=== PATIENT | female | born 1945 | race Caucasian/White ===

== ENCOUNTER 2018-01-25 21:11 | Inpatient (IN) | payer OTHER ==
[2018-01-25 21:11] VITALS: BMI 28.3
--- NOTE | 2018-01-25 21:41 | C.PDOC ---
History Of Present Illness 72 year old female presents to the ED for evaluation. Patient reports she tripped and fell at home, patient reports she remembers the event. Patient is currently c/o left ankle pain mostly. Patient denies LOC, headache, head injury , weakness, numbness. Time Seen by Provider: 01/25/18 21:41 Chief Complaint (Nursing): Trauma History Per: Patient History/Exam Limitations: no limitations Onset/Duration Of Symptoms: Hrs Current Symptoms Are (Timing): Still Present Severity: Moderate Pain Scale Rating Of: 4 Recent travel outside of the [place]: No Additional History Per: Patient, Family Past Medical History Reviewed: Historical Data, Nursing Documentation, Vital Signs Vital Signs: Last Vital Signs Temp 99.1 F 01/25/18 21:21 Pulse 111 H 01/25/18 21:21 Resp 18 01/25/18 21:21 BP 133/82 01/25/18 21:21 Pulse Ox 99 01/26/18 00:02 - Medical History PMH: Depression, HTN Denies: Chronic Kidney Disease Surgical [facility] CLOS[facility] ENDOSCOPIC BIOPSY OF LARGE INTESTINE (02/22/15) ESOPHAGOGASTRODUODENOSCOPY [EGD] W/CLOSED BIOPSY (03/01/15) Family History: States: No Known Family Hx - Social History Hx Tobacco Use: No Hx Alcohol Use: No Hx Substance Use: No - Immunization History Hx Tetanus Toxoid Vaccination: No Hx Influenza Vaccination: No Hx Pneumococcal Vaccination: No Review Of Systems Constitutional: Negative for: Fever, Chills Eyes: Negative for: Vision Change ENT: Negative for: Throat Pain Cardiovascular: Negative for: Chest Pain Respiratory: Negative for: Shortness of Breath Gastrointestinal: Negative for: Nausea, Vomiting Genitourinary: Negative for: Dysuria Musculoskeletal: Positive for: Arm Pain, Foot Pain. Negative for: Back Pain Skin: Positive for: Other (ecchymosis) Neurological: Negative for: Weakness, Numbness, Headache, Dizziness Psych: Negative for: Anxiety Physical Exam - Physical Exam Appears: Non-toxic Skin: Warm, Dry Head: Normacephalic Eye(s): bilateral: Normal Inspection, PERRL, EOMI Ear(s): Bilateral: Normal Nose: No Septal Hematoma, Other (ecchymosis on the bridge of the nose) Oral Mucosa: Moist Neck: No Midline Cervical Tenderness, Supple Chest: Symmetrical, Ecchymosis (4x6 cm on left breast) Cardiovascular: Rhythm Regular Respiratory: No Rales, No Rhonchi, No Wheezing Gastrointestinal/Abdominal: Soft, No Tenderness, No Guarding, No Rebound Back: Normal Inspection Extremity: Normal ROM, Tenderness (left ankle), Capillary Refill (< 2 seconds), Swelling (left ankle ecchymotic, medial aspect) Pulses: Left Dorsalis Pedis: Normal, Right Dorsalis Pedis: Normal Neurological/Psych: Oriented x3, Normal Speech Gait: Other (unable to bear weight on left ankle due to pain) ED Course And Treatment ECG: Interpreted By Me, Viewed By Me ECG Rhythm: Sinus Rhythm (100), Nonspecific Changes O2 Sat by Pulse Oximetry: 99 (ON RA) Pulse Ox Interpretation: Normal Progress Note: Plan: - CT head. - CT orbits/facial. - CT lower extremity. - CT upper extremity. - EKG. - Motrin 800 mg PO. Pt does not want to be hospitalized.Understands the risks as I've explained to her and family (at bedside and HIPAA compliant) including loss of limb and . Pt states that she is flying out to [facility] to bury her brother. Is aware of increased risks of PE and , but insists on leaving. Copies of the sudies given to the pt. Family is in agreement Disposition Discussed With .: Hipolito Reza Comment: accepted the pt on his service and took over the care at 2AM Doctor Will See Patient In The: Hospital Counseled Patient/Family Regarding: Studies Performed, Diagnosis, Need For Followup, Rx Given - Disposition Referrals: Reyes Abreu III, MD [Staff Provider] - Disposition: HOSPITALIZED Disposition Time: 21:41 Condition: FAIR Additional Instructions: Please follow up with out orthopedic surgean or return to the ED Instructions: Tibia Fracture, Ankle Fracture (DC), Contusion (DC), Minor Head Injury (DC), Radius Fracture (DC) Forms: [employer] (Monegasque) Print Language: TURKISH - Clinical Impression Clinical Impression: Fall, Minor head injury without loss of consciousness, Distal radius fracture, left, Fracture of distal end of tibia - Scribe Statement The provider has reviewed the documentation as recorded by the Scribe Rolando Nicole All medical record entries made by the Scribe were at my direction and personally dictated by me. I have reviewed the chart and agree that the record accurately reflects my personal performance of the history, physical exam, medical decision making, and the department course for this patient. I have also personally directed, reviewed, and agree with the discharge instructions and disposition. Decision To Admit - Pt Status Changed To: Hospital Disposition Of: Inpatient - Admit Certification Admit to Inpatient:: After my assessment, the patient will require hospitalization for at least two midnights. This is because of the severity of symptoms shown, intensity of services needed, and/or the medical risk in this patient being treated as an outpatient. - InPatient: Physician Admission Certification: I certify that this patient requires 2 or more midnights of care for the following reason:: After my assessment, the patient will require hospitalization for at least two midnights. This is because of the severity of symptoms shown, intensity of services needed, and/or the medical risk in this patient being treated as an outpatient. - . Bed Request Type: Regular Admitting Physician: Hipolito Reza Patient Diagnosis: Fall, Minor head injury without loss of consciousness, Distal radius fracture, left, Fracture of distal end of tibia
--- NOTE | 2018-01-25 23:21 | CT ---
EXAM: CT Maxillofacial Without Intravenous Contrast EXAM DATE/TIME: 01/25/2018 9:53 PM CLINICAL HISTORY: 72 years old, female; Pain; Face pain; Additional info: Fall TECHNIQUE: Axial computed tomography images of the face without intravenous contrast. All CT scans at this facility use one or more dose reduction techniques, viz.: automated exposure control; ma/kV adjustment per patient size (including targeted exams where dose is matched to indication; i.e. head); or iterative reconstruction technique. Coronal and sagittal reformatted images were created and reviewed. COMPARISON: No relevant prior studies available. FINDINGS: Bones/joints: There are no acute facial bone fractures. There is an old right lamina papyracea fracture. There degenerative changes in the upper cervical spine. Soft tissues: There are no facial masses. Vasculature: Vascular structures are unremarkable. Orbits: Globes are intact. There are no acute retrobulbar abnormalities. Salivary glands: Parotid and submandibular glands are unremarkable. Sinuses: There is a small air-fluid level in the left sphenoid sinus. There is an air-fluid level in the right maxillary sinus. Dental: Patient is almost edentulous. There are dental carries. Brain: No focal abnormalities are seen in visualized portion of the brain. IMPRESSION: Sinusitis; no acute facial bone fracture Additional nonemergent findings as described above.
--- NOTE | 2018-01-25 23:21 | CT ---
EXAM: CT Head Without Intravenous Contrast EXAM DATE/TIME: 01/25/2018 9:53 PM CLINICAL HISTORY: 72 years old, female; Pain; Headache; Additional info: Fall TECHNIQUE: Axial computed tomography images of the head/brain without intravenous contrast. All CT scans at this facility use one or more dose reduction techniques, viz.: automated exposure control; ma/kV adjustment per patient size (including targeted exams where dose is matched to indication; i.e. head); or iterative reconstruction technique. COMPARISON: There are no prior studies for comparison. FINDINGS: Brain: There is prominence of sulci gyri and ventricles. There is no midline shift. There is mild decreased attenuation in periventricular white matter. There are no focal masses. There are no focal hemorrhages. Dixon-white differentiation is visualized. Ventricles: See above. Bones: Cranial vault is intact. Orbits: There are no acute orbital abnormalities. There is an old right lamina papyracea fracture. Soft tissues: unremarkable Sinuses: There is an air-fluid level in the right maxillary sinus. There is a small air-fluid level in the left sphenoid sinus Ears and mastoids: Middle ears and mastoids are unremarkable. IMPRESSION: No acute intracranial abnormality; sinus disease
--- NOTE | 2018-01-25 23:28 | CT ---
EXAM: CT Left Upper Extremity Without Intravenous Contrast EXAM DATE/TIME: 01/25/2018 9:56 PM CLINICAL HISTORY: 72 years old, female; Pain and signs and symptoms; Swelling; Hand and wrist; Left; Upper arm and hand; Additional info: Wrist, hand left S/P fall TECHNIQUE: Axial computed tomography images of the left upper extremity without intravenous contrast. All CT scans at this facility use one or more dose reduction techniques, viz.: automated exposure control; ma/kV adjustment per patient size (including targeted exams where dose is matched to indication; i.e. head); or iterative reconstruction technique. Coronal and sagittal reformatted images were created and reviewed. COMPARISON: There are no prior studies for comparison. FINDINGS: Bones/joints: There is diffuse soft tissue swelling over the dorsum of the hand. There is palmar soft tissue swelling. There is less extensive swelling at the wrist. Distal ulna is intact. There is a linear nondisplaced distal radial fracture extending to the articular surface. There are no dislocations at the wrist. Radial carpal joint spaces are maintained. There are no carpal fractures. There are no metacarpal fractures. Phalanges are intact. There degenerative changes greatest in the distal interphalangeal joints. There is joint space narrowing and osteophyte formation. There is less extensive narrowing of the proximal interphalangeal joints. I Soft tissues: See above IMPRESSION: Soft tissue swelling at the wrist and hand; nondisplaced distal radial fracture with intra-articular extension; osteoarthritis
--- NOTE | 2018-01-25 23:36 | CT ---
EXAM: CT Left Lower Extremity Without Intravenous Contrast, Ankle EXAM DATE/TIME: 01/25/2018 9:53 PM CLINICAL HISTORY: 72 years old, female; Pain; Ankle; Left; Additional info: Fall TECHNIQUE: Axial computed tomography images of the left ankle without intravenous contrast. All CT scans at this facility use one or more dose reduction techniques, viz.: automated exposure control; ma/kV adjustment per patient size (including targeted exams where dose is matched to indication; i.e. head); or iterative reconstruction technique. Coronal and sagittal reformatted images were created and reviewed. COMPARISON: There are no prior studies for comparison. FINDINGS: Bones/joints: There is diffuse superficial edema in the lower calf. There is more extensive soft tissue swelling at the ankle. There are distal tibial fractures. There is an avulsion fracture of the medial malleolus with a minimally displaced fracture fragment. There are small degenerative ossicles inferior to the medial malleolus.There is a fracture the posterior malleolus. There may be a linear minimally displaced fracture through the mid tibia extending to the articular surface, image 42 of series 602. Visualized portion of the tibia is intact. Talus and calcaneus are intact. There are calcaneal spurs. No hindfoot or mid foot fractures are identified. There are degenerative changes. The Soft tissues: unremarkable IMPRESSION: Distal tibial fractures with soft tissue swelling
[2018-01-26 03:15] LABS: BASO % 0.3 % (0.0-2.0); EOS # 0.1 K/uL (0.0-0.7); EOS % 2.1 % (0.0-4.0); HEMOGLOBIN 10.8 g/dL (11.0-16.0); LYMPH % 14.5 % (20.0-40.0); MEAN CELL VOLUME 82.6 fL (81.0-99.0); MEAN CORPUSCULAR HEMOGLOBIN 27.7 pg (27.0-31.0); MEAN CORPUSCULAR HGB CONC 33.6 g/dL (33.0-37.0); MEAN PLATELET VOLUME 8.1 fL (7.2-11.7); MONO # 0.5 K/uL (0.0-0.8); MONO % 7.1 % (0.0-10.0); NEUT # 5.4 K/uL (1.8-7.0); RBC 3.88 Mil/uL (3.80-5.20); RED CELL DISTRIBUTION WIDTH 16.2 % (11.5-14.5); WHITE BLOOD COUNT 7.1 K/uL (4.8-10.8)
[2018-01-26 03:23] LABS: SQUAMOUS EPITHIAL 8 /hpf (0-5); URINE BILIRUBIN NEGATIVE (NEGATIVE); URINE BLOOD NEGATIVE (NEGATIVE); URINE CLARITY Clear (Clear); URINE COLOR Yellow (YELLOW); URINE GLUCOSE (UA) 3+ mg/dL (Normal); URINE LEUKOCYTE ESTERASE 3+ Leu/uL (Negative); URINE PROTEIN NEGATIVE (NEGATIVE); URINE UROBILINOGEN NORMAL mg/dL (0.2-1.0)
[2018-01-26 03:28] LABS: INR 1.1; PROTHROMBIN TIME 11.8 SECONDS (9.7-12.2)
[2018-01-26 03:30] LABS: ALB/GLOB RATIO 1.1 (1.0-2.1); ALBUMIN 3.7 g/dL (3.5-5.0); ALT/SGPT 17 U/L (9-52); AST/SGOT 19 U/L (14-36); BLOOD UREA NITROGEN 18 mg/dL (7-17); CALCIUM 8.4 mg/dl (8.6-10.4); GFR AFRICAN-AMERICAN > 60; GFR NON-AFRICAN AMERICAN > 60
[2018-01-26] MEDS ORDERED: Oxycodone/Acetaminophen 5/325 mg Tab PO PRN (03:53)
[2018-01-26 08:02] VITALS: RESP 20
[2018-01-26] MEDS: GlipiZIDE 10 mg SR Tab PO SCH ×2 (09:45→17:44)
[2018-01-26] MEDS ORDERED: Home Med 1 UNIT (Ranitidine Hcl [Ranitidine Hcl] 150 MG) PO SCH (10:00)
[2018-01-26] MEDS ORDERED: GlipiZIDE 2.5 mg SR Tab PO SCH (10:00)
[2018-01-26] MEDS ORDERED: AZELASTINE HCL OU SCH ×2 (10:00)
[2018-01-26] MEDS ORDERED: LISINOPRIL 20 MG PO SCH (10:00)
[2018-01-26] MEDS: Tobramycin/Dexamethasone (Tobradex) Opth Sol (2.5 ml) OU SCH ×2 (11:00→17:44)
[2018-01-26] MEDS: (Novolin R) Insulin Human Regular 100 units/ml vial SC SCH ×3 (12:23→21:43)
--- NOTE | 2018-01-26 12:57 | RAD ---
PROCEDURE: Left Wrist Radiographs. HISTORY: s/p fall COMPARISON: None. FINDINGS: BONES: Normal. No fracture. Bony detail obscured by overlying fiberglass splint. JOINTS: Normal. No dislocation. SOFT TISSUES: Normal. OTHER FINDINGS: None. IMPRESSION: Normal left wrist radiographs.
--- NOTE | 2018-01-26 12:58 | RAD ---
PROCEDURE: Left Ankle Radiographs. HISTORY: s/p fall COMPARISON: None FINDINGS: BONES: Bony detail obscured by overlying fiberglass splint. No evidence fracture. Small plantar calcaneal spur incidentally noted. JOINTS: Normal. No osteoarthritis. Ankle mortise maintained. Talar dome intact SOFT TISSUES: Normal. OTHER FINDINGS: None. IMPRESSION: No acute fracture. Plantar calcaneal spur.
[2018-01-26] MEDS: Oxycodone/Acetaminophen 5/325 mg Tab PO PRN ×2 (15:31→20:37)
--- NOTE | 2018-01-26 15:35 | CP.PCM.HP ---
History of Present Illness - History of Present Illness History of Present Illness: COMPREHENSIVE HISTORY & PHYSICAL EXAM Patient is admitted after a fall with a fracture of the left lower tibia. HPI Patient had a history of fall. There was no syncope or presyncopal goal episodes, chest pain or TIA. Patient then developed swelling of the left ankle presented to [facility] emergency room. X-rays showed an avulsion off the distal tibia and medial malleolus and a possible spiral fracture in the lower part of the tibia. Patient is admitted for further treatment. PAST HIST. There is a history of coronary artery disease with stent full details not available PERSONAL HIST: Smoking. N Alcohol. N Allergy N Travel_- . FAMILY HIST : ROS : Constitutional: Negative for weight change, chills, night sweats, fatigue and usage of assist device. Eyes: Negative for redness, swelling, itching, discharge, vision changes, blurry vision, double vision, glaucoma, cataracts, Ears: Negative for hearing loss, ringing, , tinnitus, vertigo Nose: Negative for rhinorrhea, stuffiness, sniffing, itching, postnasal drip, discoloration, nasal congestion and epistaxis. Throat: Negative for throat clearing, sore throat, hoarseness, difficulty swallowing and difficulty speaking. Respiratory: Negative for cough, , sputum production, chest tightness, wheezing, pleuritic chest pain ,daytime somnolence, chronic cough, hemoptysis, snoring at night, Cardiovascular: Negative for chest pain, palpitations, orthopnea, PND, Edema of legs, leg cramps, angina, claudication, , irregular heartbeat, Neurology: Negative for irritability, muscle weakness, numbness and tingling, seizures, tremors, migraines, slurred speech, syncope, memory loss, mood changes , recurrent headaches Gastrointestinal: Negative for difficulty swallowing, diarrhea, constipation, black stools, rectal bleeding, nausea, flatulence, reflux, poor appetite, changes in bowel habits, abdominal pain Genitourinary: Negative for frequent urination, hematuria, discharge, incontinence, urinary retention, frequent UTI, Psychiatric: Negative for depression, anxiety/panic, suicidal tendencies, Musculoskeletal: Positive for pain and swelling of the left ankle rest of the joints are normal Skin: Negative for rash, ulcers, itching, dry skin and pigmented lesions. P/E: Constitutional: Appears stated age and in no apparent distress. Head: Normocephalic. Ears: External ear canals patent without inflammation. Tympanic membranes intact with normal light reflex and landmark. Eyes: Pupils are central, bilaterally equal, symmetrical and reacts to light with normal movements and no icterus or pallor. Nose: External nares are patent. Mucosa is pink Mouth-Throat: Good general appearance and condition. No post-pharyngeal/oropharyngeal erythema and tonsillar hypertrophy. Good dental hygiene. Neck-Lymphatic: Neck is supple with normal ROM, no thyromegaly, lymph nodes or masses. JVD is normal with no carotid bruit. Lungs: Clear to percussion and auscultation with bilateral normal air entry. Cardiovascular: S1 and S2 are normal with no murmurs, gallops and rub. GI Exam: No hepatomegaly. Abdomen is soft and non-tender. No Organomegaly , masses or hernias are evident and bowel sounds are normal and active. Neurology: Higher function and all cranial nerves intact, with no gross motor or sensory deficit. Superficial and deep reflexes are normal with downwards planters. No cerebellar deficit with normal gait. Musculoskeletal: Left ankle on the medial side is swollen with decreased range of motion and painful the vascular bundles are normal the power and sensory are normal Extremities: Homans sign absent. Intact pulses with no pitting edema, calf tenderness or skin color changes. Skin: No rash, eruptions or abnormal skin pigmentation LAB/RADIOLOGY: ASSESMENT : Left distal tibial fracture. History of coronary artery disease with stent. PLAN: If patient is going to [place] patient will need a baseline echocardiogram for LV function. Present on Admission - Present on Admission Any Indicators Present on Admission: No Past Patient History - Infectious Disease Hx of Infectious Diseases: None - Past Medical History & Family History Past Medical History?: Yes - Past Social History Smoking Status: Never Smoked - CARDIAC Hx Hypertension: Yes - PULMONARY Hx Respiratory Disorders: No - NEUROLOGICAL Hx Neurological Disorder: No - HEENT Hx HEENT Problems: No - RENAL Hx Chronic Kidney Disease: No - ENDOCRINE/METABOLIC Hx Endocrine Disorders: Yes Hx Diabetes Mellitus Type 2: Yes - HEMATOLOGICAL/ONCOLOGICAL Hx Blood Disorders: No - INTEGUMENTARY Hx Dermatological Problems: No - MUSCULOSKELETAL/RHEUMATOLOGICAL Hx Musculoskeletal Disorders: Yes Hx Back Pain: Yes Hx Falls: Yes Hx Herniated Disk: Yes Other/Comment: HERNIATED DISC IN NECK - GASTROINTESTINAL Hx Gastrointestinal Disorders: No - GENITOURINARY/GYNECOLOGICAL Hx Genitourinary Disorders: No - PSYCHIATRIC Hx Substance Use: No - SURGICAL HISTORY Hx Coronary Stent: Yes (X2) - ANESTHESIA Hx Anesthesia: Yes Hx Anesthesia Reactions: No Hx Malignant Hyperthermia: No Meds Allergies/Adverse Reactions: Allergies Allergy/AdvReac Type Severity Reaction Status Date / Time No Known Allergies Allergy Verified 01/25/18 21:28 Results - Vital Signs Recent Vital Signs: Last Vital Signs Temp 98.3 F 01/26/18 07:59 Pulse 90 01/26/18 07:59 Resp 20 01/26/18 07:59 BP 139/81 01/26/18 07:59 Pulse Ox 96 01/26/18 07:59 - Labs Result Diagrams: 01/26/18 03:12 01/26/18 03:12 Labs: Laboratory Results - last 24 hr 01/26/18 01/26/18 01/26/18 03:12 03:12 03:12 WBC 7.1 D RBC 3.88 Hgb 10.8 L D Hct 32.0 L MCV 82.6 MCH 27.7 MCHC 33.6 RDW 16.2 H Plt Count 200 MPV 8.1 Neut % (Auto) 76.0 H Lymph % (Auto) 14.5 L [place] % (Auto) 7.1 Eos % (Auto) 2.1 Baso % (Auto) 0.3 Neut # (Auto) 5.4 Lymph # (Auto) 1.0 [place] # (Auto) 0.5 Eos # (Auto) 0.1 Baso # (Auto) 0.0 PT 11.8 INR 1.1 APTT 32 Sodium Potassium Chloride Carbon Dioxide Anion Gap BUN Creatinine Est GFR ( Amer) Est GFR (Non-Af Amer) POC Glucose (mg/dL) Random Glucose Calcium Total Bilirubin AST ALT Alkaline Phosphatase Total Protein Albumin Globulin Albumin/Globulin Ratio Urine Color Yellow Urine Clarity Clear Urine pH 5.0 Ur Specific [place] 1.022 Urine Protein Negative Urine Glucose (UA) 3+ H Urine Ketones Negative Urine Blood Negative Urine Nitrate Negative Urine Bilirubin Negative Urine Urobilinogen Normal Ur Leukocyte Esterase 3+ H Urine WBC (Auto) 73 H Urine RBC (Auto) 4 H Ur Squamous Epith Cells 8 H 01/26/18 01/26/18 01/26/18 03:12 06:53 11:28 WBC RBC Hgb Hct MCV MCH MCHC RDW Plt Count MPV Neut % (Auto) Lymph % (Auto) [place] % (Auto) Eos % (Auto) Baso % (Auto) Neut # (Auto) Lymph # (Auto) [place] # (Auto) Eos # (Auto) Baso # (Auto) PT INR APTT Sodium 143 Potassium 4.0 Chloride 107 Carbon Dioxide 26 Anion Gap 15 BUN 18 H Creatinine 0.6 L Est GFR ( Amer) > 60 Est GFR (Non-Af Amer) > 60 POC Glucose (mg/dL) 210 H 224 H Random Glucose 204 H Calcium 8.4 L Total Bilirubin 0.5 AST 19 ALT 17 Alkaline Phosphatase 57 Total Protein 6.9 Albumin 3.7 Globulin 3.3 Albumin/Globulin Ratio 1.1 Urine Color Urine Clarity Urine pH Ur Specific [place] Urine Protein Urine Glucose (UA) Urine Ketones Urine Blood Urine Nitrate Urine Bilirubin Urine Urobilinogen Ur Leukocyte Esterase Urine WBC (Auto) Urine RBC (Auto) Ur Squamous Epith Cells
[2018-01-27] MEDS: (Novolin R) Insulin Human Regular 100 units/ml vial SC SCH ×4 (08:12→21:30)
[2018-01-27] MEDS: GlipiZIDE 10 mg SR Tab PO SCH ×2 (09:14→17:45)
[2018-01-27] MEDS: Tobramycin/Dexamethasone (Tobradex) Opth Sol (2.5 ml) OU SCH ×2 (09:15→17:48)
[2018-01-27] MEDS: Oxycodone/Acetaminophen 5/325 mg Tab PO PRN (09:22)
--- NOTE | 2018-01-27 10:08 | CP.PCM.CON ---
History of Present Illness - History of Present Illness History of Present Illness: Orthopedic consultation Dr. Abreu 72F complains of left wrist and left ankle pain after falling down 4 cement stairs at home on 01/24. When pain did not improve, she came to the ER yesterday. Two daughters at bedside. Patient has 8 steps at home. RHD. Denies numbness/tingling. Denies CP/SOB/dizziness/n/v. Denies pain in other extremities. PMH: CAD s/p stents x 2, DM, no history of DVT Review of Systems - Review of Systems All systems: reviewed and no additional remarkable complaints except - Cardiovascular Cardiovascular: As Per HPI - Respiratory Respiratory: As Per HPI - Gastrointestinal Gastrointestinal: As Per HPI - Musculoskeletal Musculoskeletal: As Per HPI - Integumentary Integumentary: As Per HPI Additional comments: no wounds - Neurological Neurological: As Per HPI - Hematologic/Lymphatic Hematologic: absent: As Per HPI, Easy Bleeding, Easy Bruising, Lymphadenopathy, Other Past Patient History - Infectious Disease Hx of Infectious Diseases: None - Past Medical History & Family History Past Medical History?: Yes Past Family History: Reviewed and not pertinent - Past Social History Smoking Status: Never Smoked - CARDIAC Hx Hypertension: Yes - PULMONARY Hx Respiratory Disorders: No - NEUROLOGICAL Hx Neurological Disorder: No - HEENT Hx HEENT Problems: No - RENAL Hx Chronic Kidney Disease: No - ENDOCRINE/METABOLIC Hx Endocrine Disorders: Yes Hx Diabetes Mellitus Type 2: Yes - HEMATOLOGICAL/ONCOLOGICAL Hx Blood Disorders: No - INTEGUMENTARY Hx Dermatological Problems: No - MUSCULOSKELETAL/RHEUMATOLOGICAL Hx Musculoskeletal Disorders: Yes Hx Back Pain: Yes Hx Falls: Yes Hx Herniated Disk: Yes Other/Comment: HERNIATED DISC IN NECK - GASTROINTESTINAL Hx Gastrointestinal Disorders: No - GENITOURINARY/GYNECOLOGICAL Hx Genitourinary Disorders: No - PSYCHIATRIC Hx Substance Use: No - SURGICAL HISTORY Hx Coronary Stent: Yes (X2) - ANESTHESIA Hx Anesthesia: Yes Hx Anesthesia Reactions: No Hx Malignant Hyperthermia: No Meds Allergies/Adverse Reactions: Allergies Allergy/AdvReac Type Severity Reaction Status Date / Time No Known Allergies Allergy Verified 01/25/18 21:28 - Medications Medications: Current Medications Famotidine (Pepcid) 20 mg PO BID [facility] Last Admin: 01/27/18 09:14 Dose: 20 mg Glipizide (Glucotrol Xl) 10 mg PO BID [facility] Last Admin: 01/27/18 09:14 Dose: 10 mg Heparin Sodium (Porcine) (Heparin) 5,000 units SC Q8 [facility] Last Admin: 01/27/18 05:20 Dose: 5,000 units Insulin Human Regular (Novolin R) 0 unit SC ACHS [facility] PRN Reason: Protocol Last Admin: 01/27/18 08:12 Dose: 3 units Lisinopril (Zestril) 20 mg PO DAILY [facility] Last Admin: 01/27/18 09:21 Dose: 20 mg Metformin HCl (Glucophage Xr) 750 mg PO BID [facility] Last Admin: 01/27/18 09:14 Dose: 750 mg Oxycodone/Acetaminophen (Percocet 5/325 Mg Tab) 1 tab PO Q4H PRN PRN Reason: Pain, moderate (4-7) Stop: 01/29/18 15:17 Last Admin: 01/27/18 09:22 Dose: 1 tab Pioglitazone HCl (Actos) 15 mg PO DAILY [facility] Last Admin: 01/27/18 09:13 Dose: 15 mg Pneumococcal Polyvalent Vaccine (Pneumovax 23 Vaccine) 0.5 ml IM .ONCE ONE Stop: 01/29/18 10:01 Tobramycin/Dexamethasone (Tobradex Opht Susp) 0 ml OU BID [facility] Last Admin: 01/27/18 09:15 Dose: 1 drop Physical Exam - Constitutional Appears: Well, No Acute Distress - Head Exam Head Exam: ATRAUMATIC - Neck Exam Neck exam: Positive for: Full Rom - Respiratory Exam Respiratory Exam: NORMAL BREATHING PATTERN - Cardiovascular Exam Additional comments: +radial pulse +DP/PT pulses calves soft NT neg homans - Extremities Exam Additional comments: LLE: mild ecchymosis medial ankle. mild swelling to ankle. Skin intact, +ROM toes, sensation intact LUE: sensation intact, +ROM fingers, minimal swelling to wrist, no discoloration - Expanded Upper Extremities Exam Left Shoulder exam: full ROM, normal inspection Elbow exam: full ROM, normal inspection Neuro motor exam: finger 2-5 abduction intact, thumb abduction, thumb IP flexion intact, thumb opposition intact, wrist extension intact Neurosensory exam: median nerve intact, radial nerve intact, ulnar nerve intact Vascular exam: radial pulse - Expanded Lower Extremities Exam Left Knee exam: ecchymosis (min ecchymosis to ant knee, non tender), full ROM Ankle exam: FULL ROM Neuro vacular tendon exam: no vascular compromise - Neurological Exam Neurological exam: Alert, Oriented x3 - Psychiatric Exam Psychiatric exam: Normal Affect, Normal Mood - Skin Skin Exam: Dry, Intact, Warm Results - Vital Signs Recent Vital Signs: Last Vital Signs Temp 98.4 F 01/27/18 08:00 Pulse 79 01/27/18 08:00 Resp 20 01/27/18 08:00 BP 138/80 01/27/18 08:00 Pulse Ox 96 01/27/18 08:00 - Labs Result Diagrams: 01/26/18 03:12 01/26/18 03:12 Labs: Laboratory Results - last 24 hr 01/26/18 01/26/18 01/26/18 11:28 16:36 21:30 POC Glucose (mg/dL) 224 H 133 H 175 H 01/27/18 07:29 POC Glucose (mg/dL) 205 H - Impressions Impression: atient Name / ID : LUISA Ndiaye / [id number] Exam Date : 01/25/2018 22:37:30 ( Approved ) Study Comment : Sex / Age : F / 72Y 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 no. Patient Name: EDILMA MORAN Pt. Address: [address] [place] [address] Med. Rec #: [id number] [place] [address]: Renato KENDALL, [place] Pt Order Location: [facility] : 1945 Female Age: 72 Order #: [id number] Reason for exam: wrist, hand left s/p fall CT Scan EXT UPPER W/O CONTRAST LEFT Exam Date: 01/25/18 This imaging exam was performed at [facility] EXAM: CT Left Upper Extremity Without Intravenous Contrast EXAM DATE/TIME: 01/25/2018 9:56 PM CLINICAL HISTORY: 72 years old, female; Pain and signs and symptoms; Swelling; Hand and wrist; Left; Upper arm and hand; Additional info: Wrist, hand left S/P fall TECHNIQUE: Axial computed tomography images of the left upper extremity without intravenous contrast. All CT scans at this facility use one or more dose reduction techniques, viz.: automated exposure control; ma/kV adjustment per patient size (including targeted exams where dose is matched to indication; i.e. head); or iterative reconstruction technique. Coronal and sagittal reformatted images were created and reviewed. COMPARISON: There are no prior studies for comparison. FINDINGS: Bones/joints: There is diffuse soft tissue swelling over the dorsum of the hand. There is palmar soft tissue swelling. There is less extensive swelling at the wrist. Distal ulna is intact. There is a linear nondisplaced distal radial fracture extending to the articular surface. There are no dislocations at the wrist. Radial carpal joint spaces are maintained. There are no carpal fractures. There are no metacarpal fractures. Phalanges are intact. There degenerative changes greatest in the distal interphalangeal joints. There is joint space narrowing and osteophyte formation. There is less extensive narrowing of the proximal interphalangeal joints. I Soft tissues: See above IMPRESSION: Soft tissue swelling at the wrist and hand; nondisplaced distal radial fracture with intra-articular extension; osteoarthritis Dictated By: Pop Recio MD, MD Dictated Date/Time: 01/25/182326 Signed By: Pop Recio MD Date Signed: [id number] Transcribed By: [facility] Transcribe Date/Time : 01/25/182326 RENEA/GRECIA Patient Name / ID : LUISA Ndiaye / [id number] Exam Date : 01/25/2018 22:41:19 ( Approved ) Study Comment : Sex / Age : F / 72Y Creator : POP RECIO Dictator : Elementary Principal : Vice President Payer : POP RECIO Approver2 : Report Date : 01/25/2018 23:35:00 My Comment : [facility] [address] [address] Tel. no. Patient Name: EDILMA MORAN Pt. Address: [address] [place] [address] Rec #: [id number] [place] [address]: Renato KENDALL, [place] Pt Order Location: [facility] : 1945 Female Age: 72 Order #: [id number] Reason for exam: fall CT Scan EXT LOWER W/O CONTRAST LEFT Exam Date: 01/25/18 This imaging exam was performed at [facility] EXAM: CT Left Lower Extremity Without Intravenous Contrast, Ankle EXAM DATE/TIME: 01/25/2018 9:53 PM CLINICAL HISTORY: 72 years old, female; Pain; Ankle; Left; Additional info: Fall TECHNIQUE: Axial computed tomography images of the left ankle without intravenous contrast. All CT scans at this facility use one or more dose reduction techniques, viz.: automated exposure control; ma/kV adjustment per patient size (including targeted exams where dose is matched to indication; i.e. head); or iterative reconstruction technique. Coronal and sagittal reformatted images were created and reviewed. COMPARISON: There are no prior studies for comparison. FINDINGS: Bones/joints: There is diffuse superficial edema in the lower calf. There is more extensive soft tissue swelling at the ankle. There are distal tibial fractures. There is an avulsion fracture of the medial malleolus with a minimally displaced fracture fragment. There are small degenerative ossicles inferior to the medial malleolus.There is a fracture the posterior malleolus. There may be a linear minimally displaced fracture through the mid tibia extending to the articular surface, image 42 of series 602. Visualized portion of the tibia is intact. Talus and calcaneus are intact. There are calcaneal spurs. No hindfoot or mid foot fractures are identified. There are degenerative changes. The Soft tissues: unremarkable IMPRESSION: Distal tibial fractures with soft tissue swelling Dictated By: Pop Recio MD, MD Dictated Date/Time: 01/25/182334 Signed By: Pop Recio MD Date Signed: [id number] Transcribed By: [facility] Transcribe Date/Time : 01/25/182334 KORSH/MT Assessment & Plan (1) Fracture of distal end of tibia Assessment and Plan: non operative short leg cast NWB elevation PT/OT VTE proph d/c planning d/w Dr. Abreu, agrees with above Status: Acute (2) Distal radius fracture, left Assessment and Plan: non displaced non operative short arm cast NWB elevation d/w Dr. Abreu, agrees with above Status: Acute Procedures Attestation:: I certify that I have explained the specified Operation(s) or Procedure(s), risks, benefits and reasonable alternatives to the Patient and/or other person responsible. The opportunity was given to ask questions and all questions answered - Orthopedic Splinting/Casting Injury #1 Side: left Upper Extremity Injury Location: wrist (well padded short arm cast applied, NVID pre and post cast application) Lower Extremity Injury Location: ankle (left ankle: short leg cast application: NVID pre and post casting)
--- NOTE | 2018-01-27 10:37 | CP.PCM.PN ---
Subjective - Date & Time of Evaluation Date of Evaluation: 01/27/18 Time of Evaluation: 10:33 - Subjective Subjective: CHIEF COMPLAINTS TODAY : pain in the left ankle. ROS. HEENT : N. Resp : No cough, wheezing ,pleuritic CP ,or hemoptysis Cardio : No anginal CP, PND, orthopnea, palpitation GI : No abd.pain, n/v ,diarrhea or GI bleeding . MOTOR OPERATOR : No headache, vertigo, focal deficit. Musculoskel : No joint swelling , Derm : No rash Psych : Normal affect. Ext : No swelling ,calf pain PE. Pt. is alert awake in no distress. V.S As noted in the chart Head ,ear nose,throat and eyes : Normal. Neck : Supple with normal carotids. Lungs: Clear air entry. Heart : S1 & S2 normal with S4. No murmur. Abd : Soft non tender with normal bowel sounds. Neuro : Moves all ext. with no localized deficit. Ext : No edema with intact pulses.Non tender calves . Left ankle is swollen with surrounding inflammation Derm : No rashes or decubitus ulcer. LABS/RADIOLOGY: ASSESSMENT/PLAN : orthopedic evaluation noted. Patient currently does not need surgery. Soft cast. Short-term rehab Objective - Vital Signs/Intake and Output Vital Signs (last 24 hours): Temp Pulse Resp BP Pulse Ox 98.4 F 79 20 138/80 96 01/27/18 08:00 01/27/18 08:00 01/27/18 08:00 01/27/18 08:00 01/27/18 08:00 Intake and Output: 01/26/18 01/27/18 23:59 11:59 Intake Total 480 0 Balance 480 0 - Medications Medications: Current Medications Famotidine (Pepcid) 20 mg PO BID [facility] Last Admin: 01/27/18 09:14 Dose: 20 mg Glipizide (Glucotrol Xl) 10 mg PO BID [facility] Last Admin: 01/27/18 09:14 Dose: 10 mg Heparin Sodium (Porcine) (Heparin) 5,000 units SC Q8 [facility] Last Admin: 01/27/18 05:20 Dose: 5,000 units Insulin Human Regular (Novolin R) 0 unit SC ACHS [facility] PRN Reason: Protocol Last Admin: 01/27/18 08:12 Dose: 3 units Lisinopril (Zestril) 20 mg PO DAILY [facility] Last Admin: 01/27/18 09:21 Dose: 20 mg Metformin HCl (Glucophage Xr) 750 mg PO BID [facility] Last Admin: 01/27/18 09:14 Dose: 750 mg Oxycodone/Acetaminophen (Percocet 5/325 Mg Tab) 1 tab PO Q4H PRN PRN Reason: Pain, moderate (4-7) Stop: 01/29/18 15:17 Last Admin: 01/27/18 09:22 Dose: 1 tab Pioglitazone HCl (Actos) 15 mg PO DAILY [facility] Last Admin: 01/27/18 09:13 Dose: 15 mg Pneumococcal Polyvalent Vaccine (Pneumovax 23 Vaccine) 0.5 ml IM .ONCE ONE Stop: 01/29/18 10:01 Tobramycin/Dexamethasone (Tobradex Opht Susp) 0 ml OU BID [facility] Last Admin: 01/27/18 09:15 Dose: 1 drop - Labs Labs: 01/26/18 03:12 01/26/18 03:12 PT 11.8 SECONDS (9.7-12.2) 01/26/18 03:12 INR 1.1 01/26/18 03:12 APTT 32 SECONDS (21-34) 01/26/18 03:12
--- NOTE | 2018-01-27 14:29 | CARD ---
APPROVED REPORT EXAM: Two-dimensional and M-mode echocardiogram with Doppler and color Doppler. Other Information Quality : GoodRhythm : INDICATION Pre-Op RISK FACTORS Hypertension Obesity Hyperlipidemia 2D DIMENSIONS IVSd0.9 (0.7-1.1cm)LVDd4.0 (3.9-5.9cm) PWd1.0 (0.7-1.1cm)LVDs2.2 (2.5-4.0cm) FS (%) 44.6 %LVEF (%)76.5 (>50%) M-Mode DIMENSIONS RVDd1.32 (2.1-3.2cm)Left Atrium (MM)2.99 (2.5-4.0cm) IVSd0.94 (0.7-1.1cm)Aortic Root2.87 (2.2-3.7cm) LVDd3.90 (4.0-5.6cm)Aortic Cusp Exc.1.93 (1.5-2.0cm) PWd1.01 (0.7-1.1cm)FS (%) 59 % LVDs1.59 (2.0-3.8cm)LVEF (%)75 (>50%) Mitral Valve MV E Nodoqkyf11.3cm/sMV A Aapzgqzc815.6cm/sE/A ratio0.6 TDI E/Lateral E'0.0E/Medial E'0.0 Tricuspid Valve TR Peak Jsmikggm813go/sTR Peak Gr.29ctTcLHVR34vpCw LEFT VENTRICLE The left ventricle is normal size. There is normal left ventricular wall thickness. The left ventricular function is normal. The left ventricular ejection fraction is within the normal range. There is normal LV segmental wall motion. Transmitral Doppler flow pattern is Grade I-abnormal relaxation pattern. RIGHT VENTRICLE The right ventricle is normal size. There is normal right ventricular wall thickness. The right ventricular systolic function is normal. ATRIA The left atrium size is normal. The right atrium size is normal. AORTIC VALVE The aortic valve is normal in structure. No aortic regurgitation is present. There is no aortic valvular stenosis. MITRAL VALVE The mitral valve is normal in structure. There is no evidence of mitral valve prolapse. There is no mitral valve stenosis. TRICUSPID VALVE There is mild pulmonary hypertension. PULMONIC VALVE There is trace pulmonic valvular regurgitation. GREAT VESSELS The aortic root is normal in size. The IVC is normal in size and collapses >50% with inspiration. PERICARDIAL EFFUSION There is a trace loculated anterior pericardial effusion. <Conclusion> The left ventricle is normal size. There is normal left ventricular wall thickness. The left ventricular function is normal. The left ventricular ejection fraction is within the normal range. There is normal LV segmental wall motion. Transmitral Doppler flow pattern is Grade I-abnormal relaxation pattern. There is mild pulmonary hypertension.
[2018-01-28] MEDS: (Novolin R) Insulin Human Regular 100 units/ml vial SC SCH ×4 (08:02→21:57)
[2018-01-28] MEDS: Oxycodone/Acetaminophen 5/325 mg Tab PO PRN ×2 (10:08→18:00)
[2018-01-28] MEDS: GlipiZIDE 10 mg SR Tab PO SCH ×2 (10:09→17:44)
[2018-01-28] MEDS: Tobramycin/Dexamethasone (Tobradex) Opth Sol (2.5 ml) OU SCH ×2 (10:11→17:43)
--- NOTE | 2018-01-28 12:11 | CARD ---
APPROVED REPORT EKG Measurement Heart [id number] SC [id number] <Conclusion> Normal sinus rhythm Low voltage QRS Cannot rule out Anterior infarct, age undetermined Abnormal ECG
--- NOTE | 2018-01-28 14:24 | CP.PCM.PN ---
Subjective - Date & Time of Evaluation Date of Evaluation: 01/28/18 Time of Evaluation: 14:22 - Subjective Subjective: CHIEF COMPLAINTS TODAY : pain in the left ankle. ROS. HEENT : N. Resp : No cough, wheezing ,pleuritic CP ,or hemoptysis Cardio : No anginal CP, PND, orthopnea, palpitation GI : No abd.pain, n/v ,diarrhea or GI bleeding . HAND MARKER : No headache, vertigo, focal deficit. Musculoskel : No joint swelling , Derm : No rash Psych : Normal affect. Ext : No swelling ,calf pain PE. Pt. is alert awake in no distress. V.S As noted in the chart Head ,ear nose,throat and eyes : Normal. Neck : Supple with normal carotids. Lungs: Clear air entry. Heart : S1 & S2 normal with S4. No murmur. Abd : Soft non tender with normal bowel sounds. Neuro : Moves all ext. with no localized deficit. Ext : No edema with intact pulses.Non tender calves . Soft cast left upper and lower ext LABS/RADIOLOGY: ASSESSMENT/PLAN : orthopedic evaluation noted. Patient currently does not need surgery. Soft cast. Short-term rehab Objective - Vital Signs/Intake and Output Vital Signs (last 24 hours): Temp Pulse Resp BP Pulse Ox 98.2 F 81 20 157/70 H 97 01/28/18 08:17 01/28/18 08:17 01/28/18 08:17 01/28/18 10:10 01/28/18 08:17 Intake and Output: 01/28/18 01/28/18 11:59 23:59 Intake Total 200 Balance 200 - Medications Medications: Current Medications Amlodipine Besylate (Norvasc) 5 mg PO DAILY [facility] Last Admin: 01/28/18 10:09 Dose: 5 mg Clopidogrel Bisulfate (Plavix) 75 mg PO DAILY [facility] Last Admin: 01/28/18 10:09 Dose: 75 mg Famotidine (Pepcid) 20 mg PO BID [facility] Last Admin: 01/28/18 10:55 Dose: 20 mg Glipizide (Glucotrol Xl) 10 mg PO BID [facility] Last Admin: 01/28/18 10:09 Dose: 10 mg Heparin Sodium (Porcine) (Heparin) 5,000 units SC Q8 [facility] Last Admin: 01/28/18 13:22 Dose: 5,000 units Insulin Human Regular (Novolin R) 0 unit SC ACHS [facility] PRN Reason: Protocol Last Admin: 01/28/18 12:01 Dose: 4 units Lisinopril (Zestril) 20 mg PO DAILY [facility] Last Admin: 01/28/18 10:09 Dose: 20 mg Metformin HCl (Glucophage Xr) 750 mg PO BID [facility] Last Admin: 01/28/18 10:10 Dose: 750 mg Metoprolol Tartrate (Lopressor) 25 mg PO BID [facility] Last Admin: 01/28/18 10:10 Dose: 25 mg Oxycodone/Acetaminophen (Percocet 5/325 Mg Tab) 1 tab PO Q4H PRN PRN Reason: Pain, moderate (4-7) Stop: 01/29/18 15:17 Last Admin: 01/28/18 10:08 Dose: 1 tab Pioglitazone HCl (Actos) 15 mg PO DAILY [facility] Last Admin: 01/28/18 10:55 Dose: 15 mg Pneumococcal Polyvalent Vaccine (Pneumovax 23 Vaccine) 0.5 ml IM .ONCE ONE Stop: 01/29/18 10:01 Tobramycin/Dexamethasone (Tobradex Opht Susp) 0 ml OU BID [facility] Last Admin: 01/28/18 10:11 Dose: 1 drop - Labs Labs: 01/26/18 03:12 01/26/18 03:12 PT 11.8 SECONDS (9.7-12.2) 01/26/18 03:12 INR 1.1 01/26/18 03:12 APTT 32 SECONDS (21-34) 01/26/18 03:12
[2018-01-28] MEDS ORDERED: Midazolam 2 MG/2 ML VIAL ONE ×2 (15:13→15:21)
[2018-01-28] MEDS ORDERED: Propofol 10 mg/ml Inj (20 ML) ONE (15:14)
--- NOTE | 2018-01-28 17:50 | CP.PCM.PN ---
Subjective - Date & Time of Evaluation Date of Evaluation: 01/28/18 Time of Evaluation: 11:00 - Subjective Subjective: Alert, awake, no sob or chest pains. Objective - Vital Signs/Intake and Output Vital Signs (last 24 hours): Temp Pulse Resp BP Pulse Ox 98.3 F 81 20 101/66 95 01/28/18 15:00 01/28/18 15:00 01/28/18 15:00 01/28/18 15:00 01/28/18 15:00 Intake and Output: 01/28/18 01/28/18 06:59 18:59 Intake Total 500 400 Output Total 240 Balance 260 400 - Medications Medications: Current Medications Amlodipine Besylate (Norvasc) 5 mg PO DAILY [facility] Last Admin: 01/28/18 10:09 Dose: 5 mg Clopidogrel Bisulfate (Plavix) 75 mg PO DAILY [facility] Last Admin: 01/28/18 10:09 Dose: 75 mg Famotidine (Pepcid) 20 mg PO BID [facility] Last Admin: 01/28/18 10:55 Dose: 20 mg Glipizide (Glucotrol Xl) 10 mg PO BID [facility] Last Admin: 01/28/18 10:09 Dose: 10 mg Heparin Sodium (Porcine) (Heparin) 5,000 units SC Q8 [facility] Last Admin: 01/28/18 13:22 Dose: 5,000 units Insulin Human Regular (Novolin R) 0 unit SC ACHS [facility] PRN Reason: Protocol Last Admin: 01/28/18 12:01 Dose: 4 units Lisinopril (Zestril) 20 mg PO DAILY [facility] Last Admin: 01/28/18 10:09 Dose: 20 mg Metformin HCl (Glucophage Xr) 750 mg PO BID [facility] Last Admin: 01/28/18 10:10 Dose: 750 mg Metoprolol Tartrate (Lopressor) 25 mg PO BID [facility] Last Admin: 01/28/18 10:10 Dose: 25 mg Oxycodone/Acetaminophen (Percocet 5/325 Mg Tab) 1 tab PO Q4H PRN PRN Reason: Pain, moderate (4-7) Stop: 01/29/18 15:17 Last Admin: 01/28/18 10:08 Dose: 1 tab Pioglitazone HCl (Actos) 15 mg PO DAILY [facility] Last Admin: 01/28/18 10:55 Dose: 15 mg Pneumococcal Polyvalent Vaccine (Pneumovax 23 Vaccine) 0.5 ml IM .ONCE ONE Stop: 01/29/18 10:01 Tobramycin/Dexamethasone (Tobradex Opht Susp) 0 ml OU BID [facility] Last Admin: 01/28/18 10:11 Dose: 1 drop - Labs Labs: 01/26/18 03:12 01/26/18 03:12 PT 11.8 SECONDS (9.7-12.2) 01/26/18 03:12 INR 1.1 01/26/18 03:12 APTT 32 SECONDS (21-34) 01/26/18 03:12 Assessment and Plan - Assessment and Plan (Free Text) Assessment: Patient admitted with fracture distal radius and left ankle, s/p fall at home. Seen and examined, alert, awake, no acute distress. CAST INTACT ON LEFT WRIST and left ankle. Cleared by ortho for discharge to rehab. Discussed with DR Reza, plan to discharge to [facility] today. Advised to follow up with ortho as advised.
[2018-01-28] MEDS ORDERED: Pneumococcal 23-Valent Vaccine IM ONE (18:00)
[2018-01-29 07:31] LABS: BASO % 0.3 % (0.0-2.0); EOS # 0.4 K/uL (0.0-0.7); EOS % 6.2 % (0.0-4.0); HEMOGLOBIN 11.2 g/dL (11.0-16.0); LYMPH # 1.4 K/uL (1.0-4.3); LYMPH % 21.6 % (20.0-40.0); MEAN CELL VOLUME 82.9 fL (81.0-99.0); MEAN CORPUSCULAR HEMOGLOBIN 27.8 pg (27.0-31.0); MEAN CORPUSCULAR HGB CONC 33.5 g/dL (33.0-37.0); MEAN PLATELET VOLUME 7.9 fL (7.2-11.7); MONO # 0.4 K/uL (0.0-0.8); MONO % 6.8 % (0.0-10.0); NEUT # 4.2 K/uL (1.8-7.0); NEUT % 65.1 % (50.0-75.0); NRBC % 0.1 % (0.0-2.0); RBC 4.03 Mil/uL (3.80-5.20); RED CELL DISTRIBUTION WIDTH 16.2 % (11.5-14.5); WHITE BLOOD COUNT 6.5 K/uL (4.8-10.8)
[2018-01-29] MEDS: (Novolin R) Insulin Human Regular 100 units/ml vial SC SCH (07:55)
[2018-01-29 08:12] LABS: BLOOD UREA NITROGEN 22 mg/dL (7-17); CALCIUM 8.6 mg/dl (8.6-10.4); GFR AFRICAN-AMERICAN > 60; GFR NON-AFRICAN AMERICAN > 60
[2018-01-29 09:18] VITALS: BP 114/67; PULSE 77; TEMP 98.2; O2SAT 95
[2018-01-29] MEDS: GlipiZIDE 10 mg SR Tab PO SCH (09:34)
[2018-01-29] MEDS: Tobramycin/Dexamethasone (Tobradex) Opth Sol (2.5 ml) OU SCH (09:36)
[2018-01-29] MEDS: Oxycodone/Acetaminophen 5/325 mg Tab PO PRN (10:16)
== END 2018-01-29 11:15 | DRG 563 ==
LOC: C.ER 21:11 → C.9E 01-26 02:06 → C.3T 01-26 03:09
PROVIDERS: ADMIT Internal Medicine Cardiovascular Disease; ATTEND Internal Medicine Cardiovascular Disease
DX: S52.572A Other intraarticular fracture of lower end of left radius, initial encounter for closed fracture (principal); S82.302A Unspecified fracture of lower end of left tibia, initial encounter for closed fracture; Z95.5 Presence of coronary angioplasty implant and graft; I10 Essential (primary) hypertension; E11.9 Type 2 diabetes mellitus without complications; W18.30XA Fall on same level, unspecified, initial encounter; Y92.009 Unspecified place in unspecified non-institutional (private) residence as the place of occurrence of the external cause; I25.10 Atherosclerotic heart disease of native coronary artery without angina pectoris